=== PATIENT | male | born 1965 | race Caucasian/White ===

== ENCOUNTER 2021-01-14 21:01 | Inpatient (IN) ==
[2021-01-15] MEDS ORDERED: Naloxone 0.4 MG/ML INJ IVP PRN (00:48)
[2021-01-15] MEDS ORDERED: Ondansetron 4 MG/2 ML VIAL IVP PRN (00:48)
[2021-01-15] MEDS ORDERED: *HR* LORazepam 2 MG/ML VIAL IVP PRN (00:53)
[2021-01-15] MEDS: Thiamine (B-1) 100 MG, Folic Acid 1 MG, MVI, adult with vitamin K 10 ML in 0.9 % Sodi... IVPB SCH (01:51)
[2021-01-15 03:20] LABS: Basophils % 0.9 %; Eosinophils # 0.1 K/mcL (0.0-0.6); Hematocrit 34.5 % (37.5-50.1); Hemoglobin 11.5 g/dL (12.9-16.9); Immature Granulocytes % 0.2 % (0-4); Lymphocytes # 2.4 K/mcL (0.6-4.6); Lymphocytes % 52.1 %; Mean Corpuscular HGB Conc 33.3 g/dL (31.6-35.5); Mean Corpuscular Hemoglobin 31.6 pg (28.0-33.3); Mean Corpuscular Volume 94.8 fL (83.0-100.0); Mean Platelet Volume 10.2 fL (9.4-12.4); Monocytes # 0.4 K/mcL (0.0-1.3); Monocytes % 9.4 %; Neutrophils # 1.6 K/mcL (1.6-8.9); Platelet Count 164 K/mcL (140-400); Red Blood Count 3.64 M/mcL (4.19-5.50); Red Cell Distribution Width 14.7 % (11.5-14.5); Segmented Neutrophils % 35.4 %; White Blood Count 4.6 K/mcL (4.3-11.1)
[2021-01-15 03:40] LABS: Alanine Aminotransferase 45 Units/L (7-52); Albumin 3.7 g/dL (3.5-5.7); Albumin/Globulin Ratio 1.5 (1.1-2.2); Alkaline Phosphatase 97 Units/L (34-104); Aspartate Amino Transferase 81 Units/L (13-39); BUN/Creatinine Ratio 11 (6-26); Bilirubin,Total 0.4 mg/dL (0.3-1.0); Blood Urea Nitrogen 13 mg/dL (6-20); Calcium 8.9 mg/dL (8.6-10.3); Carbon Dioxide 28 mEq/L (23-29); Chloride 102 mEq/L (98-107); Globulin 2.5 g/dL (2.4-3.5); Glucose 91 mg/dL (70-105); Magnesium 1.9 mg/dL (1.6-2.6); Osmolality,Calculated 296 (280-300); Potassium 2.8 mEq/L (3.5-5.1); Sodium 143 mEq/L (136-145); Total Protein 6.2 g/dL (6.4-8.9); Troponin I < 0.03 ng/mL (< 0.04); eGFR For African Americans > 60 (> 60); eGFR For Non-African Americans > 60 (> 60)
[2021-01-15] MEDS ORDERED: Magnesium Sulfate 1 GM/102 ML PIGGYBACK IVPB ONE (03:49)
[2021-01-15] MEDS ORDERED: Potassium Chloride 40 MEQ, Lidocaine 1% 2 ML in 0.9 % Sodium Chloride 500 ML IVPB ONE (04:15)
[2021-01-15] MEDS ORDERED: Sodium Bicarbonate 50 MEQ/50 ML VIAL IVP ONE (04:22)
[2021-01-15 05:25] LABS: Prothrombin Time 12.1 Seconds (9.4-12.1)
[2021-01-15 05:27] LABS: Activated Partial Thrombo Time 28.9 Seconds (26.0-36.0)
[2021-01-15] MEDS: FLUoxetine 20 MG CAPSULE PO SCH (16:58)
[2021-01-15] MEDS ORDERED: *HR* Heparin 5,000 UNIT/ML VIAL SQ SCH (18:00)
[2021-01-15] MEDS: Gabapentin 100 MG CAPSULE PO SCH (22:08)
[2021-01-15] MEDS: Apixaban 5 MG TABLET PO SCH (22:08)
[2021-01-15] MEDS: *HR* LORazepam 2 MG/ML VIAL IVP PRN (22:08)
[2021-01-15] MEDS: Melatonin 3 MG TABLET PO PRN (22:10)
[2021-01-15] MEDS: traZODone 50 MG TABLET PO SCH (22:50)
[2021-01-16 07:51] LABS: Hematocrit 35.2 % (37.5-50.1); Hemoglobin 12.1 g/dL (12.9-16.9); Mean Corpuscular HGB Conc 34.4 g/dL (31.6-35.5); Mean Corpuscular Hemoglobin 32.4 pg (28.0-33.3); Mean Corpuscular Volume 94.1 fL (83.0-100.0); Mean Platelet Volume 10.6 fL (9.4-12.4); Platelet Count 126 K/mcL (140-400); Red Blood Count 3.74 M/mcL (4.19-5.50); Red Cell Distribution Width 14.8 % (11.5-14.5); White Blood Count 4.6 K/mcL (4.3-11.1)
[2021-01-16 08:15] LABS: Alanine Aminotransferase 39 Units/L (7-52); Albumin 3.6 g/dL (3.5-5.7); Albumin/Globulin Ratio 1.5 (1.1-2.2); Alkaline Phosphatase 102 Units/L (34-104); Aspartate Amino Transferase 54 Units/L (13-39); BUN/Creatinine Ratio 15 (6-26); Bilirubin,Total 0.4 mg/dL (0.3-1.0); Blood Urea Nitrogen 18 mg/dL (6-20); Calcium 8.7 mg/dL (8.6-10.3); Carbon Dioxide 33 mEq/L (23-29); Chloride 99 mEq/L (98-107); Globulin 2.4 g/dL (2.4-3.5); Glucose 107 mg/dL (70-105); Osmolality,Calculated 290 (280-300); Potassium 2.7 mEq/L (3.5-5.1); Sodium 139 mEq/L (136-145); eGFR For African Americans > 60 (> 60); eGFR For Non-African Americans > 60 (> 60)
[2021-01-16] MEDS: Gabapentin 100 MG CAPSULE PO SCH ×2 (08:26→20:26)
[2021-01-16] MEDS: FLUoxetine 20 MG CAPSULE PO SCH (08:27)
[2021-01-16] MEDS: Apixaban 5 MG TABLET PO SCH ×2 (08:27→20:27)
[2021-01-16] MEDS: Thiamine (B-1) 100 MG, Folic Acid 1 MG, MVI, adult with vitamin K 10 ML in 0.9 % Sodi... IVPB SCH (16:53)
[2021-01-16] MEDS: traZODone 50 MG TABLET PO SCH (20:26)
[2021-01-16] MEDS: *HR* LORazepam 2 MG/ML VIAL IVP PRN (20:34)
[2021-01-17 03:05] LABS: Mean Platelet Volume 10.6 fL (9.4-12.4)
[2021-01-17 03:06] LABS: Hematocrit 37.1 % (37.5-50.1); Hemoglobin 12.1 g/dL (12.9-16.9); Immature Platelets 3.8 % (1.1-6.1); Mean Corpuscular HGB Conc 32.6 g/dL (31.6-35.5); Mean Corpuscular Hemoglobin 31.5 pg (28.0-33.3); Mean Corpuscular Volume 96.6 fL (83.0-100.0); Red Blood Count 3.84 M/mcL (4.19-5.50); Red Cell Distribution Width 14.9 % (11.5-14.5); White Blood Count 5.3 K/mcL (4.3-11.1)
[2021-01-17 03:26] LABS: Albumin 3.6 g/dL (3.5-5.7); Albumin/Globulin Ratio 1.4 (1.1-2.2); Bilirubin,Total 0.3 mg/dL (0.3-1.0); Calcium 9.1 mg/dL (8.6-10.3); Globulin 2.5 g/dL (2.4-3.5); Potassium 3.6 mEq/L (3.5-5.1); Total Protein 6.1 g/dL (6.4-8.9)
[2021-01-17] MEDS: Gabapentin 100 MG CAPSULE PO SCH ×2 (08:59→21:23)
[2021-01-17] MEDS: FLUoxetine 20 MG CAPSULE PO SCH (08:59)
[2021-01-17] MEDS: Apixaban 5 MG TABLET PO SCH ×2 (08:59→21:24)
[2021-01-17] MEDS: 0.9 % Sodium Chloride 1,000 ML IVC SCH (12:37)
[2021-01-17] MEDS: *HR* LORazepam 2 MG/ML VIAL IVP PRN ×3 (13:13→23:29)
[2021-01-17 17:25] LABS: BUN/Creatinine Ratio 12 (6-26); Blood Urea Nitrogen 17 mg/dL (6-20); Carbon Dioxide 28 mEq/L (23-29); Chloride 104 mEq/L (98-107); Glucose 122 mg/dL (70-105); Osmolality,Calculated 293 (280-300); Potassium 3.9 mEq/L (3.5-5.1); Sodium 140 mEq/L (136-145); eGFR For African Americans > 60 (> 60); eGFR For Non-African Americans 50 (> 60)
[2021-01-17] MEDS: Thiamine (B-1) 100 MG, Folic Acid 1 MG, MVI, adult with vitamin K 10 ML in 0.9 % Sodi... IVPB SCH (18:15)
[2021-01-17] MEDS: traZODone 50 MG TABLET PO SCH (21:24)
[2021-01-17] MEDS: Melatonin 3 MG TABLET PO PRN (21:24)
[2021-01-18 05:02] LABS: Alanine Aminotransferase 36 Units/L (7-52); Albumin 3.4 g/dL (3.5-5.7); Albumin/Globulin Ratio 1.5 (1.1-2.2); Alkaline Phosphatase 98 Units/L (34-104); Aspartate Amino Transferase 39 Units/L (13-39); BUN/Creatinine Ratio 14 (6-26); Bilirubin,Total 0.3 mg/dL (0.3-1.0); Blood Urea Nitrogen 19 mg/dL (6-20); Calcium 8.5 mg/dL (8.6-10.3); Carbon Dioxide 28 mEq/L (23-29); Chloride 105 mEq/L (98-107); Globulin 2.3 g/dL (2.4-3.5); Glucose 121 mg/dL (70-105); Osmolality,Calculated 294 (280-300); Potassium 3.4 mEq/L (3.5-5.1); Sodium 140 mEq/L (136-145); Total Protein 5.7 g/dL (6.4-8.9); eGFR For African Americans > 60 (> 60); eGFR For Non-African Americans 54 (> 60)
[2021-01-18 05:07] LABS: Red Blood Count 3.59 M/mcL (4.19-5.50); White Blood Count 5.1 K/mcL (4.3-11.1)
[2021-01-18 05:08] LABS: Hematocrit 34.6 % (37.5-50.1); Hemoglobin 11.5 g/dL (12.9-16.9); Mean Corpuscular HGB Conc 33.2 g/dL (31.6-35.5); Mean Corpuscular Volume 96.4 fL (83.0-100.0); Mean Platelet Volume 10.6 fL (9.4-12.4); Platelet Count 121 K/mcL (140-400); Red Cell Distribution Width 14.6 % (11.5-14.5)
[2021-01-18] MEDS: FLUoxetine 20 MG CAPSULE PO SCH (08:40)
[2021-01-18] MEDS: Apixaban 5 MG TABLET PO SCH ×2 (08:40→20:14)
[2021-01-18] MEDS: 0.9 % Sodium Chloride 1,000 ML IVC SCH ×2 (08:40→20:14)
[2021-01-18] MEDS: Gabapentin 100 MG CAPSULE PO SCH ×2 (08:40→20:12)
[2021-01-18] MEDS: amLODIPine 5 MG TABLET PO SCH (08:41)
[2021-01-18] MEDS ORDERED: Potassium Chloride Elixir 20 MEQ/15 ML UDC PO ONE (11:03)
[2021-01-18] MEDS: *HR* LORazepam 2 MG/ML VIAL IVP PRN ×2 (16:30→22:00)
[2021-01-18] MEDS: Melatonin 3 MG TABLET PO PRN (20:13)
[2021-01-18] MEDS: traZODone 50 MG TABLET PO SCH (20:14)
[2021-01-19 06:26] LABS: Hematocrit 35.7 % (37.5-50.1); Hemoglobin 11.8 g/dL (12.9-16.9); Mean Corpuscular HGB Conc 33.1 g/dL (31.6-35.5); Mean Corpuscular Hemoglobin 32.2 pg (28.0-33.3); Mean Corpuscular Volume 97.5 fL (83.0-100.0); Mean Platelet Volume 10.8 fL (9.4-12.4); Platelet Count 118 K/mcL (140-400); Red Blood Count 3.66 M/mcL (4.19-5.50); Red Cell Distribution Width 15.1 % (11.5-14.5); White Blood Count 4.7 K/mcL (4.3-11.1)
[2021-01-19 06:46] LABS: Alanine Aminotransferase 44 Units/L (7-52); Albumin 3.5 g/dL (3.5-5.7); Albumin/Globulin Ratio 1.5 (1.1-2.2); Alkaline Phosphatase 95 Units/L (34-104); Aspartate Amino Transferase 51 Units/L (13-39); BUN/Creatinine Ratio 11 (6-26); Bilirubin,Total 0.2 mg/dL (0.3-1.0); Blood Urea Nitrogen 14 mg/dL (6-20); Calcium 8.5 mg/dL (8.6-10.3); Carbon Dioxide 26 mEq/L (23-29); Chloride 110 mEq/L (98-107); Globulin 2.3 g/dL (2.4-3.5); Glucose 92 mg/dL (70-105); Osmolality,Calculated 294 (280-300); Potassium 3.8 mEq/L (3.5-5.1); Sodium 142 mEq/L (136-145); Total Protein 5.8 g/dL (6.4-8.9); eGFR For African Americans > 60 (> 60); eGFR For Non-African Americans 59 (> 60)
[2021-01-19] MEDS: amLODIPine 5 MG TABLET PO SCH (08:11)
[2021-01-19] MEDS: Apixaban 5 MG TABLET PO SCH ×2 (08:11→20:07)
[2021-01-19] MEDS: Gabapentin 100 MG CAPSULE PO SCH ×2 (08:11→20:06)
[2021-01-19] MEDS: FLUoxetine 20 MG CAPSULE PO SCH (08:11)
[2021-01-19] MEDS: *HR* LORazepam 2 MG/ML VIAL IVP PRN ×4 (11:24→23:58)
[2021-01-19] MEDS: traZODone 50 MG TABLET PO SCH (20:07)
[2021-01-20] MEDS: 0.9 % Sodium Chloride 1,000 ML IVC SCH (01:46)
[2021-01-20 01:54] LABS: Red Cell Distribution Width 14.9 % (11.5-14.5)
[2021-01-20 01:56] LABS: Hemoglobin 11.8 g/dL (12.9-16.9); Immature Platelets 3.8 % (1.1-6.1); Mean Corpuscular HGB Conc 32.8 g/dL (31.6-35.5); Mean Corpuscular Hemoglobin 31.9 pg (28.0-33.3); Mean Corpuscular Volume 97.3 fL (83.0-100.0); Mean Platelet Volume 10.8 fL (9.4-12.4); Red Blood Count 3.7 M/mcL (4.19-5.50)
[2021-01-20 02:03] LABS: Alanine Aminotransferase 52 Units/L (7-52); Albumin 3.6 g/dL (3.5-5.7); Albumin/Globulin Ratio 1.4 (1.1-2.2); Alkaline Phosphatase 100 Units/L (34-104); Aspartate Amino Transferase 53 Units/L (13-39); BUN/Creatinine Ratio 14 (6-26); Bilirubin,Total 0.3 mg/dL (0.3-1.0); Blood Urea Nitrogen 17 mg/dL (6-20); Calcium 9.1 mg/dL (8.6-10.3); Carbon Dioxide 26 mEq/L (23-29); Chloride 108 mEq/L (98-107); Globulin 2.5 g/dL (2.4-3.5); Glucose 110 mg/dL (70-105); Osmolality,Calculated 292 (280-300); Potassium 3.9 mEq/L (3.5-5.1); Sodium 140 mEq/L (136-145); Total Protein 6.1 g/dL (6.4-8.9); eGFR For African Americans > 60 (> 60); eGFR For Non-African Americans > 60 (> 60)
[2021-01-20] MEDS: amLODIPine 5 MG TABLET PO SCH (09:08)
[2021-01-20] MEDS: FLUoxetine 20 MG CAPSULE PO SCH (09:08)
[2021-01-20] MEDS: Gabapentin 100 MG CAPSULE PO SCH ×2 (09:08→19:50)
[2021-01-20] MEDS: Apixaban 5 MG TABLET PO SCH ×2 (09:08→19:50)
[2021-01-20] MEDS: *HR* LORazepam 2 MG/ML VIAL IVP PRN (12:09)
[2021-01-20] MEDS ORDERED: *HR* LORazepam 0.5 MG TABLET PO ONE (16:24)
[2021-01-20] MEDS: Nicotine 21 MG PATCH.TD24 TD PRN (18:00)
[2021-01-20] MEDS ORDERED: *HR* OxyCODONE Immed Rel 5 MG TABLET PO ONE (19:39)
[2021-01-20] MEDS: traZODone 50 MG TABLET PO SCH (19:49)
[2021-01-20] MEDS: Melatonin 3 MG TABLET PO PRN (22:07)
[2021-01-21] MEDS: amLODIPine 5 MG TABLET PO SCH (09:11)
[2021-01-21] MEDS: Gabapentin 100 MG CAPSULE PO SCH ×2 (09:11→21:04)
[2021-01-21] MEDS: Apixaban 5 MG TABLET PO SCH ×2 (09:12→21:05)
[2021-01-21] MEDS: FLUoxetine 20 MG CAPSULE PO SCH (09:12)
[2021-01-21] MEDS: *HR* LORazepam 0.5 MG TABLET PO PRN ×2 (13:08→21:05)
[2021-01-21] MEDS ORDERED: Acetaminophen 325 MG TABLET PO ONE (16:23)
[2021-01-21] MEDS: traZODone 50 MG TABLET PO SCH (21:05)
[2021-01-21] MEDS: Melatonin 3 MG TABLET PO PRN (23:30)
[2021-01-22] MEDS: Gabapentin 100 MG CAPSULE PO SCH ×2 (09:57→20:29)
[2021-01-22] MEDS: FLUoxetine 20 MG CAPSULE PO SCH (09:57)
[2021-01-22] MEDS: amLODIPine 5 MG TABLET PO SCH (09:57)
[2021-01-22] MEDS: Apixaban 5 MG TABLET PO SCH ×2 (09:57→20:29)
[2021-01-22] MEDS: *HR* LORazepam 0.5 MG TABLET PO PRN ×2 (12:21→20:29)
[2021-01-22] MEDS: Nicotine 21 MG PATCH.TD24 TD PRN (16:27)
[2021-01-22] MEDS: Melatonin 3 MG TABLET PO PRN (20:28)
[2021-01-22] MEDS: traZODone 50 MG TABLET PO SCH (20:29)
[2021-01-23] MEDS: Apixaban 5 MG TABLET PO SCH ×2 (08:32→20:46)
[2021-01-23] MEDS: amLODIPine 5 MG TABLET PO SCH (08:32)
[2021-01-23] MEDS: FLUoxetine 20 MG CAPSULE PO SCH (08:33)
[2021-01-23] MEDS: Gabapentin 100 MG CAPSULE PO SCH ×2 (08:33→20:44)
[2021-01-23] MEDS: traZODone 50 MG TABLET PO SCH (20:43)
[2021-01-23] MEDS: QUEtiapine Fumarate 100 MG TABLET PO SCH (20:43)
[2021-01-23] MEDS: Melatonin 3 MG TABLET PO PRN (20:49)
[2021-01-24] MEDS: FLUoxetine 20 MG CAPSULE PO SCH (09:47)
[2021-01-24] MEDS: Gabapentin 100 MG CAPSULE PO SCH ×2 (09:47→20:55)
[2021-01-24] MEDS: amLODIPine 5 MG TABLET PO SCH (09:48)
[2021-01-24] MEDS: Apixaban 5 MG TABLET PO SCH ×2 (09:48→20:54)
[2021-01-24] MEDS: Metoprolol XL (24 HR) Succ 50 MG TAB.ER.24H PO SCH (10:32)
[2021-01-24] MEDS: traZODone 50 MG TABLET PO SCH (20:53)
[2021-01-24] MEDS: QUEtiapine Fumarate 100 MG TABLET PO SCH (20:54)
[2021-01-24] MEDS: Melatonin 3 MG TABLET PO PRN (20:55)
[2021-01-25] MEDS: Metoprolol XL (24 HR) Succ 50 MG TAB.ER.24H PO SCH (09:36)
[2021-01-25] MEDS: amLODIPine 5 MG TABLET PO SCH (09:38)
[2021-01-25] MEDS: Gabapentin 100 MG CAPSULE PO SCH ×2 (09:42→21:54)
[2021-01-25] MEDS: Apixaban 5 MG TABLET PO SCH ×2 (09:43→21:53)
[2021-01-25] MEDS: FLUoxetine 20 MG CAPSULE PO SCH (09:43)
[2021-01-25] MEDS: QUEtiapine Fumarate 100 MG TABLET PO SCH (21:54)
[2021-01-25] MEDS: traZODone 50 MG TABLET PO SCH (21:55)
[2021-01-25] MEDS: Melatonin 3 MG TABLET PO PRN (22:02)
[2021-01-26] MEDS: Metoprolol XL (24 HR) Succ 50 MG TAB.ER.24H PO SCH (09:17)
[2021-01-26] MEDS: Gabapentin 100 MG CAPSULE PO SCH (09:17)
[2021-01-26] MEDS: FLUoxetine 20 MG CAPSULE PO SCH (09:17)
[2021-01-26] MEDS: Apixaban 5 MG TABLET PO SCH (09:17)
[2021-01-26] MEDS: amLODIPine 5 MG TABLET PO SCH (09:18)
[2021-01-26 14:29] LABS: Adenovirus Not Detected (Not Detect); Bordetella Pertussis Not Detected (Not Detect); Chlamydophila pneumoniae Not Detected (Not Detect); Coronavirus 229E Not Detected (Not Detect); Coronavirus HKU1 Not Detected (Not Detect); Coronavirus NL63 Not Detected (Not Detect); Coronavirus OC43 Not Detected (Not Detect); Human Metapneumovirus Not Detected (Not Detect); Human Rhinovirus/Enterovirus Not Detected (Not Detect); Influenza A Subtype 2009 H1 Not Detected (Not Detect); Influenza B Not Detected (Not Detect); Mycoplasma pneumoniae Not Detected (Not Detect); Parainfluenza Virus 1 Not Detected (Not Detect); Parainfluenza Virus 2 Not Detected (Not Detect); Parainfluenza Virus 3 Not Detected (Not Detect); Parainfluenza Virus 4 Not Detected (Not Detect); Respiratory Syncytial Virus Not Detected (Not Detect); SARS-CoV-2 Not Detected (Not Detect)
[2021-01-26 14:59] VITALS: BP 131/73; PULSE 60; TEMP 98.3; O2SAT 95
== END 2021-01-26 16:22 | DRG 896 ==
LOC: 3BNU → SUATTDRO 01-15 00:32
PROVIDERS: ADMIT Family Medicine; ATTEND Registered Nurse